=== PATIENT | female | born 1985 | race Caucasian/White ===

== ENCOUNTER 2022-08-23 21:47 | Emergency (ER) | payer OTHER, SELFPAY ==
[2022-08-23] VITALS (8 sets, daily range): BP systolic 113–158; BP diastolic 62–78; PULSE 63–79; RESP 16; TEMP 36.1; O2SAT 99–100; BMI 54.8
--- NOTE | 2022-08-23 21:51 | DI.RAD.S_ITS ---
PROCEDURE: XR ANKLE LT 2V INDICATIONS: L ankle pain after fall TECHNIQUE: 2 views of the ankle were acquired. COMPARISON: None. FINDINGS: Bones: Distal fibular fracture above the syndesmosis. The fracture is comminuted. Mild displacement. No dislocations. Ankle mortise is normally aligned. No suspicious bony lesions. Small plantar calcaneal fracture. Soft tissues: No tibiotalar joint effusion. Achilles tendon appears normal. IMPRESSION: Comminuted distal fibular fracture above the syndesmosis. Peyton Gilbert Dictated by: El Nguyen M.D. on 08/23/2022 at 22:19 Approved by: El Nguyen M.D. on 08/23/2022 at 22:20
--- NOTE | 2022-08-23 23:00 | ED.LOWEXIN ---
HPI - Extremity Injury (Lower) General Chief Complaint: Extremity Injury, Lower Stated Complaint: L ankle injury Time Seen by Provider: 08/23/22 21:51 Source: patient and EMS Mode of arrival: EMS History of Present Illness HPI Narrative: Patient is a 36-year-old female who arrived by EMS for evaluation of a left ankle injury. She states she was roller-skating and fell back and landed on her left ankle. States she felt and heard a pop and has been not ambulatory since then. No prior injuries. She did arrive in a air cast. Related Data Home Medications Medication Instructions Recorded Confirmed amitriptyline 10 mg tablet 10 mg PO HS ##0 05/05/16 atorvastatin 20 mg tablet (Lipitor) 20 mg PO QDAY ##0 05/05/16 cyclobenzaprine 10 mg tablet 20 mg PO HS ##0 05/05/16 etonogestrel 68 mg subdermal 68 mg intradermal ##0 05/05/16 implant (Nexplanon) gabapentin 300 mg capsule 600 mg PO TID ##0 05/05/16 (Neurontin) nadolol 20 mg tablet (Corgard) 20 mg PO QDAY ##0 05/05/16 ropinirole 0.5 mg tablet (Requip) 0.5 mg PO HS ##0 05/05/16 Previous Rx's Medication Instructions Recorded cyclobenzaprine 10 mg tablet 10 mg PO Q8HP PRN #14 tabs 05/05/16 hydrocodone 5 mg-acetaminophen 325 1 - 2 tab PO Q6HP PRN #10 tabs 16 mg tablet ([place]) ondansetron 4 mg disintegrating 4 mg sublingual Q6HP PRN ##10 16 tablet (Zofran ODT) hydrocodone 5 mg-acetaminophen 325 1 tab PO Q4-6H PRN pain #20 tabs 08/24/22 mg tablet Allergies Allergy/AdvReac Type Severity Reaction Status Date / Time Penicillins [PENICILLINS] Allergy Severe Hives Verified 08/23/22 23:53 Review of Systems Constitutional Constitutional: Reports system reviewed and no additional complaints, except as documented Musculoskeletal Musculoskeletal: Reports system reviewed and no additional complaints, except as documented Integumentary/Breasts Skin/Breast: Reports system reviewed and no additional complaints, except as documented Neurologic Neurologic: Reports system reviewed and no additional complaints, except as documented Hematologic/Lymphatic On Anticoagulants: No Patient History Social History Smoking Status: Never smoker Smoking Status: Never smoker Substance Use Type: does not use Exam Initial Vital Signs Initial Vital Signs: Vital Signs Pulse Rate 79 08/23/22 21:50 Blood Pressure 136/62 08/23/22 21:50 Pulse Oximetry 99 08/23/22 21:50 Cardio Pulses: dorsalis pedis present on the left Skin Other: Small skin abrasion on the top of the left foot Extrem Other: Patient with discomfort lateral aspect above the lateral malleolus. No tenderness along the medial side. No tenderness palpation of the top of the foot. Procedures Orthopedic Splinting/Casting Injury #1: Side: left Lower Extremity Injury Location: ankle Lower Extremity Immobilizer: posterior splint and stirrup splint Other Orthopedic Equipment: crutches Post splinting neuro exam: intact Post splinting vascular exam: intact Placed by: Provider Course Orders Ordered: ED Orders 08/23/22 21:51 XR ankle LT 2V Stat Discontinued Medications Hydrocodone Bitart/Acetaminophen (Hydrocodone/Acet 5/325 Tablet) 1 tab PO NOW ONE Stop: 08/23/22 23:01 Last Admin: 08/23/22 23:24 Dose: 1 tab Documented By: LYDIA Hydrocodone Bitart/Acetaminophen (Hydrocodone/Acet 5/325 Prepack) 1 bottle MISC SEEINSTR ONE Stop: 08/23/22 23:01 Last Admin: 08/23/22 23:24 Dose: 1 bottle Documented By: LYDIA Vital Signs Vital signs: Vital Signs - 8 hr 08/23/22 21:51 08/23/22 21:50 08/23/22 21:50 Temperature 97 F L Pulse Rate 78 79 Respiratory Rate 16 Blood Pressure 136/62 136/62 Pulse Oximetry 99 99 Oxygen Delivery Method Room Air 08/23/22 22:00 08/23/22 22:00 08/23/22 22:30 Temperature Pulse Rate 66 Respiratory Rate Blood Pressure 138/65 113/70 Pulse Oximetry 100 Oxygen Delivery Method 08/23/22 22:30 08/23/22 23:00 08/23/22 23:00 Temperature Pulse Rate 67 66 Respiratory Rate Blood Pressure 158/71 H Pulse Oximetry 100 100 Oxygen Delivery Method 08/23/22 23:30 08/23/22 23:31 08/23/22 23:31 Temperature Pulse Rate 63 64 Respiratory Rate Blood Pressure 136/78 Pulse Oximetry 100 100 Oxygen Delivery Method 08/23/22 23:49 08/23/22 23:49 08/24/22 00:00 Temperature Pulse Rate 69 73 Respiratory Rate Blood Pressure 134/70 Pulse Oximetry 100 100 Oxygen Delivery Method 08/24/22 00:01 08/24/22 00:01 Temperature Pulse Rate 70 Respiratory Rate Blood Pressure 154/71 H Pulse Oximetry 100 Oxygen Delivery Method MDM - Extremity Injury (Lower) Imaging Data Extremity x-ray #1: Radiologist's Impression: PROCEDURE:? XR ANKLE LT 2V ? INDICATIONS:? L ankle pain after fall ? TECHNIQUE:? 2 views of the ankle were acquired.? ? COMPARISON:? None. ? FINDINGS:? ? Bones:? Distal fibular fracture above the syndesmosis.? The fracture is comminuted.? Mild displacement.? No dislocations.? Ankle mortise is normally aligned.? No suspicious bony lesions.? Small plantar calcaneal fracture.? ? Soft tissues:? No tibiotalar joint effusion.? Achilles tendon appears normal.? ? ? IMPRESSION:? Comminuted distal fibular fracture above the syndesmosis.? Peyton Gilbert [facility] Narrative Medical decision making narrative: Patient is neurovascularly intact. She does have a fibular fracture but it is proximal. There is some concern this type of injury of a syndesmotic injury. Does not appear to be any tibia involvement. Because of this she was placed in a splint and made nonweightbearing. Will discharge patient home with instructions to follow-up with orthopedic surgery. Patient was given return precautions and follow-up instructions. She expressed understanding and agreement. Discharge Plan Departure Patient Disposition: Home Clinical Impression: Ankle fracture, left Instructions: How to Use Crutches, DI for Ankle Fracture, How to Take Care of Your Splint Activity Restrictions/Additional Instructions: I recommend that you contact the Orthopedic doctors at the number provided below for follow-up later this week. Continue all of your medications as directed. The splint needs to be treated like a cast. You need to keep it on keep it clean and keep it dry. Use the crutches and do not walk on your left leg. Return to the emergency department for new or worsening symptoms. Prescriptions: New hydrocodone-acetaminophen 5-325 mg tablet 1 tab PO Q4-6H PRN (Reason: pain) Qty: 20 0RF No Action amitriptyline 10 MG tablet 10 mg PO HS Qty: 0 ropinirole [Requip] 0.5 MG tablet 0.5 mg PO HS Qty: 0 cyclobenzaprine 10 MG tablet 20 mg PO HS Qty: 0 atorvastatin [Lipitor] 20 MG tablet 20 mg PO QDAY Qty: 0 nadolol [Corgard] 20 MG tablet 20 mg PO QDAY Qty: 0 gabapentin [Neurontin] 300 MG capsule 600 mg PO TID Qty: 0 etonogestrel [Nexplanon] 68 MG implant 68 mg Intradermal Qty: 0 cyclobenzaprine 10 MG tablet 10 mg PO Q8HP PRNQty: 14 0RF hydrocodone-acetaminophen [[place]] 5 MG/325 MG tablet 1 - 2 tab PO Q6HP PRNQty: 10 0RF ondansetron [Zofran ODT] 4 MG tablet,disintegrating 4 mg Sublingual Q6HP PRNQty: 10 0RF Referrals: Rosario Guerrero MD [Physician] - Aurora Nix PA-C [Primary Care Provider] - Stand Alone Forms: Patient Portal/API
[2022-08-23] MEDS: HYDROCODONE/ACET 5/325 TABLET 1 TAB PO (23:24)
[2022-08-23] MEDS: HYDROCODONE/ACET 5/325 PREPACK 1 BOTTLE MISC (23:24)
[2022-08-24] VITALS: PULSE 73; O2SAT 100
[2022-08-24 00:01] VITALS: BP 154/71; PULSE 70; O2SAT 100
== END 2022-08-24 00:25 | disposition home or self-care (01) ==
PROVIDERS: Emergency Provider Emergency Medicine; PCP Physician Assistant
DX: S82.892A Other fracture of left lower leg, initial encounter for closed fracture (principal); W18.30XA Fall on same level, unspecified, initial encounter; Y93.51 Activity, roller skating (inline) and skateboarding
CPT/HCPCS: 29515; 73600; 99283

== ENCOUNTER 2022-08-28 07:49 | Day surgery (SDC) | payer OTHER, SELFPAY ==
[2022-08-28] VITALS (11 sets, daily range): BP systolic 124–164; BP diastolic 65–97; PULSE 64–82; RESP 15–28; TEMP 36.5–37.1; O2SAT 91–98; BMI 56.5
--- NOTE | 2022-08-28 | DI.RAD.S_ITS ---
PROCEDURE: XR ANKLE LT MIN 3V INDICATIONS: ORIF LEFT ANKLE TECHNIQUE: 3 views of the ankle were acquired. COMPARISON: [facility], CR, XR ANKLE LT 2V, 08/23/2022, 21:49. FINDINGS: Intraoperative images were obtained for distal fibular fracture plate/screw fixation, improved anatomic alignment. IMPRESSION: Intraoperative images. Please see op note for full details. Dictated by: Jeffry Roldan M.D. on 08/28/2022 at 11:23 Approved by: Jeffry Roldan M.D. on 08/28/2022 at 11:24
--- NOTE | 2022-08-28 08:45 | PM.PREOP ---
Pre-operative Note Interval Note History & Physical reviewed/Exam performed by Physician: Yes Changes to H&P: No
[2022-08-28] MEDS: LACTATED RINGERS 1,000 ML 42 ML IV ×2 (08:53→10:36)
[2022-08-28] MEDS: CEFAZOLIN VIAL 3 GM in SODIUM CHLORIDE 0.9% 100 ML IV (09:10)
--- NOTE | 2022-08-28 09:52 | SUR.OPER ---
Supine on padded OR bed, head on pillow and padded wedge placed by Anesthesia, arms secured on padded arm boards at <90 degrees abduction, legs uncrossed, safety belt at lower torso, tape over blanket over right lower leg. Left leg in control of the Surgeon. Folded blankets under patients left leg/hip.
[2022-08-28] MEDS: BUPIVACAINE 0.25% (PF) 30 ML, EPINEPHrine 0.15 MG INJ (10:12)
--- NOTE | 2022-08-28 11:14 | P.OP_ITS ---
Operative Date/Time/Diagnoses Date of procedure: 08/28/22 Time of procedure: 11:15 Pre-op diagnosis: Left ankle fracture Syndesmosis disruption left ankle Morbid obesity BMI 55 Post-op diagnosis: same Procedure & Clinicians Procedure: Open reduction internal fixation left ankle CPT code 17731 Open reduction internal fixation syndesmosis left ankle CPT code 97348 This procedure was performed using a number 22 modifier due to morbid obesity BMI 55 and resultant difficulty in positioning and with exposure requiring additional time longer than standard ankle fracture reconstruction Same procedure as scheduled: Yes Indications: Patient is a 36-year-old female who was roller skating at [facility] when she fell folding her left ankle underneath her. She felt a pop and was unable to stand. She was found to have a fibular shaft fracture Todd C and concern for syndesmotic injury. She was indicated for open reduction internal fixation to restore length and alignment to the fibula do an examination under anesthesia and stabilize the syndesmosis and or deltoid as indicated. The risks and benefits of the procedure have been discussed with the patient and given the opportunity to ask questions. The risks of surgery include but are not limited to infection, malunion, nonunion, persistence of pain, damage to nerves and blood vessels, posttraumatic arthritis, DVT, PE, coardiopulmonary complications and . The patient expressed a thorough understanding of the risks and benefits of surgery and has elected to proceed. Consent was signed. Surgeon: Rosario Guerreor Click Yes if Unassisted: Yes Anesthesia Type: General, Peripheral nerve block and Local Operative Notes Findings: Comminuted Todd C fibular shaft fracture with butterfly fragment. Grossly unstable syndesmosis. Medial ecchymosis. Superficial excoriation over the anterior ankle joint. Fortunately cookie tattoo directly at the level of the lateral fibula fracture site Closure Type: primary Specimen(s): none sent Prosthetic devices, grafts, tissues, transplants, or devices: Arthrex 10 hole locking straight recon plate 1 distal 3.5 locking screw remainder of screws were 3.5 cortical screws Tightrope XP Estimated Blood Loss (mL): 50 Blood products transfused: none Tourniquet time (min): 30 Procedure in detail: Patient was seen in the preoperative area the site of surgery was marked informed consent confirmed. She was brought back to the operating room by the anesthesia team after they placed a peripheral nerve block for postoperative pain control. Patient is placed supine on the table. General anesthetic was administered. All bony prominences well padded. A well-padded thigh tourniquet was placed. Attention was turned to the left lower extremity was prepped and draped in the standard sterile fashion. A formal time-out procedure was performed confirming the patient's side and site of surgery administration of appropriate preoperative antibiotics were dosed 3 g of Ancef. All were in agreement. Implants were in the room with a candidate for. Esmarch was used for exsanguination the tourniquet raised on the thigh to 250 mmHg. C-arm was brought in marked the level of the fracture. There was a tattoo directly over the level of the fracture laterally. Ankle open reduction internal fixation: Incision was made and dissection was taken down to the level of the fibula. Care was taken to identify and protect the superficial peroneal nerve Fracture was exposed. Fracture site was cleaned and reduced with bone clamps. A 10 hole recon style straight plate from the Arthrex set was selected due to the patient's BMI and the shaft level of the fracture this was secured in place with screws proximally and distally. This anatomically reduce the fracture. Was checked on AP mortise and lateral images once this was completed stress exam was demonstrated persistent instability of the syndesmosis. Syndesmotic fixation: At this point the syndesmosis was reduced with thumb pressure and then pinned with a K-wire. A drill for the suture button device the Arthrex tightrope Xp was then drilled through the most distal hole in the plate through all 4 cortices. The tightrope Xp was then positioned and deployed in the standard fashion. This was tightened and then before final tightening the pin was removed. Final tightening was completed. Once this was done ankle was taken back through range of motion and tested with eversion stress and the syndesmosis was stable mortise was symmetric Ankle was put through a valgus stress there was no valgus tilt. Tourniquet was released. Hemostasis was achieved. Deep tissues were closed with 2-0 Vicryl subcutaneous 4-0 Monocryl and skin with 3-0 nylon suture. Meticulous care was taken in repairing the patient's tattoo which was localized centrally in the incision. Then 20 cc of local anesthetic were infiltrated. Sterile dressings with Xeroform gauze and Webril were placed. Xeroform was also placed over the anterior abrasion. A well-padded posterior and U splint was placed and the patient was woken from anesthesia and taken to recovery room in good condition. There were no immediate complications for this procedure. All counts were correct Complications: none Post-operative Condition: stable Disposition: PACU Plan for aftercare: Nonweightbearing. Elevate above the heart level for the 1st 2 weeks after surgery to help with incision healing. Will be nonweightbearing 6 weeks. Follow up in clinic in 2 weeks for suture removal and placement into a boot. Start early range of motion 2 weeks postop. Six weeks appointment will get three views left ankle x-rays
[2022-08-28] MEDS: OXYCODONE IR 5 MG TABLET PO (12:50)
== END 2022-08-28 12:20 | disposition home or self-care (01) ==
PROVIDERS: PCP Physician Assistant; Referring Provider Orthopaedic Surgery Foot and Ankle Surgery; Visit Provider Orthopaedic Surgery Foot and Ankle Surgery
PROC: (CPT 27792; principal; 2022-08-28 09:15)
DX: S82.892A Other fracture of left lower leg, initial encounter for closed fracture (principal); S93.432A Sprain of tibiofibular ligament of left ankle, initial encounter; G89.18 Other acute postprocedural pain; E66.9 Obesity, unspecified; Z68.43 Body mass index [BMI] 50.0-59.9, adult; W01.0XXA Fall on same level from slipping, tripping and stumbling without subsequent striking against object, initial encounter; Y93.51 Activity, roller skating (inline) and skateboarding
CPT/HCPCS: 27792; 27829; 64450; 73610; 76000; C1713; J0171; J0690; J1100; J2250; J2405; J2704; J3010